=== PATIENT | female | born 1985 | race Caucasian/White ===

== ENCOUNTER 2022-07-31 17:09 | Emergency (ER) | payer SELFPAY ==
[~2022-07-31] VITALS: Ht 162.6 cm; Wt 55.0 kg
[2022-07-31] MEDS ORDERED: PERCOCET 5/321 COMBO PO (19:22)
[2022-07-31] MEDS ORDERED: AMOX/K CLAV875 M1 PO (19:22)
== END 2022-07-31 19:45 | disposition home or self-care (01) | DRG 605 ==
LOC: ED 17:09
DX: S61.052A Open bite of left thumb without damage to nail, initial encounter (principal); S61.051A Open bite of right thumb without damage to nail, initial encounter; S61.257A Open bite of left little finger without damage to nail, initial encounter; W54.0XXA Bitten by dog, initial encounter